=== PATIENT | male | born 1985 | race Caucasian/White ===

== ENCOUNTER 2019-04-15 14:45 | Outpatient (CLI) | payer BC ==
--- NOTE | 2019-04-15 17:57 | MRI ---
CERVICAL SPINE MRI WITHOUT CONTRAST: 04/15/19 COMPARISON: None. HISTORY: Neck pain radiating down the right shoulder. TECHNIQUE: Multiplanar and multisequence MRI imaging of the cervical spine obtained without contrast. FINDINGS: The sagittal STIR imaging demonstrates no focal area of osseous marrow edema. There is straightening of the normal cervical lordosis. The craniocervical junction, atlantoaxial interspace, and cervicotho racic junction appear intact. C2-3: No significant central canal or neural foraminal stenosis. C3-4: No significant central canal or neural foraminal stenosis. C4-5: No significant central canal or neural foraminal stenosis. C5-6: There is disc space narrowing with disc desiccation and mild disc bulge partially effacing the ventral thecal sac. There is no significant associated central canal stenosis. There is a questionabl e small foraminal disc protrusion on the right at C5-6 causing a mild degree of right neural foramina l stenosis, assessment limited secondary to motion. C6-7: No significant central canal or neural foraminal stenosis. C7-T1: No central canal or neural foraminal stenosis. There is no focal area of abnormal signal intensity identified within the cervical cord. IMPRESSION: Degenerative change at C5-6. Probable associated small disc protrusion in the right foraminal region with mild right neural foraminal stenosis. POS: TPC
== END 2019-04-15 14:46 | disposition home or self-care (01) ==
LOC: SCSMRI 14:45
PROVIDERS: ATTEND Orthopaedic Surgery
DX: M47.22 Other spondylosis with radiculopathy, cervical region (principal); M48.02 Spinal stenosis, cervical region
CPT/HCPCS: 72141

== ENCOUNTER 2019-08-20 10:25 | Outpatient (CLI) | payer OTHER ==
--- NOTE | 2019-08-20 11:33 | MRI ---
MRI RIGHT KNEE PERFORMED WITHOUT CONTRAST ENHANCEMENT: Date: 08/20/2019 HISTORY: Right knee pain after injury on 08/18/2019. FINDINGS: Anterior, as well as posterior cruciate ligaments are intact. The lateral meniscus has a normal shape and appearance. There is a flap-type tear involving the medial meniscus. This occurs along the posterior horn extendi ng to the posterior horn/body junction region. The medial, as well as lateral collateral ligaments are intact. The patellar articular cartilage is normal in appearance. Medial and lateral patellar retinaculum and quadriceps and patellar tendons are normal. IMPRESSION: Flap-type tear involving the posterior horn and posterior horn/body junction region of the medial men iscus. POS: TPC
== END 2019-08-20 10:26 | disposition home or self-care (01) ==
LOC: TBSIIMAG 10:25
PROVIDERS: ATTEND Family Medicine
DX: M23.91 Unspecified internal derangement of right knee (principal); S83.241A Other tear of medial meniscus, current injury, right knee, initial encounter

== ENCOUNTER 2019-11-05 06:16 | Outpatient (CLI) | payer OTHER ==
[2019-11-05 11:51] LABS: #Basophils 0.1 thou/uL (0.0-0.2); #Eosinphils 0.4 thou/uL (0.0-0.7); #Lymphocytes 1.8 thou/uL (1.20-3.40); #Monocytes 0.5 thou/uL (0.11-0.59); #Neutrophils 4.3 thou/uL (1.40-6.50); %Basophils 0.8 % (0.0-1.0); %Eosinophils 5.7 % (0.0-10.0); %Monocytes 7.4 % (0.0-10.0); %Neutrophils 61.1 % (42.0-75.0); Hemoglobin 15.3 g/dL (14.0-18.0); Mean Corpuscular Hemoglobin 30.1 pg (27.0-31.0); Mean Corpuscular Volume 91.2 fL (78.0-98.0); Mean Platelet Volume 8.6 fL (7.4-10.4); Platelet Count 296 thou/uL (130-400); RBC Distribution Width 11.2 % (11.5-14.5); Red Blood Cell (RBC) Count 5.06 mill/uL (4.70-6.10)
[2019-11-05 18:21] LABS: SARS-CoV-2 MS2 Positive; SARS-CoV-2 N Gene Negative; SARS-CoV-2 S Gene Negative; SARS-CoV-2 orf1ab Negative
== END 2019-11-05 06:17 | disposition home or self-care (01) ==
LOC: LABBT 06:16
PROVIDERS: ATTEND Orthopaedic Surgery
DX: Z01.812 Encounter for preprocedural laboratory examination (principal); Z11.59 Encounter for screening for other viral diseases; S83.241A Other tear of medial meniscus, current injury, right knee, initial encounter
CPT/HCPCS: 85025; 87635; U0003

== ENCOUNTER 2019-11-09 05:47 | Day surgery (SDC) | payer OTHER ==
[2019-11-05 10:22] VITALS: BMI 25.0
[2019-11-09] MEDS ORDERED: Fentanyl 100 MCG/2 ML VIAL ONE (06:21)
[2019-11-09] MEDS ORDERED: Midazolam HCl 2 mg/2 ml Vial ONE ×2 (06:21→07:14)
[2019-11-09] MEDS ORDERED: Lidocaine 1% (PF) 30 ML VIAL ONE (06:49)
[2019-11-09] MEDS ORDERED: Bupivacaine/Epinephrine 0.25% 30 ML VIAL ONE (06:49)
--- NOTE | 2019-11-09 07:39 | HP ---
PREOPERATIVE DIAGNOSIS: Right knee pain. HISTORY OF PRESENT ILLNESS: Mr. Rhodes is a 34-year-old male, who on July 17 sustained an injury to his knee. It got mechanical locking and catching. The patient has been treated. He does ranching and currently on light duty. He has failed conservative measures. PAST MEDICAL HISTORY: Seasonal allergies, asthma. MEDICATIONS: Include, 1. Tylenol. 2. Albuterol. ALLERGIES: NO KNOWN DRUG ALLERGIES. SOCIAL HISTORY: Nonsmoker. The patient uses smokeless tobacco. 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 Alcohol, daily. PHYSICAL EXAMINATION: GENERAL: Alert and oriented, in no acute distress, resting comfortably in bed. EXTREMITIES: Right lower extremity: No effusion or erythema. No medial joint line pain. Stable exam. Full range of motion. Positive Gilberto's. Negative straight leg raise. Neurovascularly intact. IMAGING STUDIES: MRI showed a flap tearmedial meniscus. IMPRESSION: Medial meniscus tear. ASSESSMENT AND PLAN: The patient will be taken to the operating room for arthroscopic debridement/partial menisectomy of the medial meniscus tear. He understands the risks and benefits to include arthritis, pain, decreased range of motion and strength, fracture, failure of procedure, damage to vital structures, potential blood clots, loss of life or limb. The patient understands the risks and benefits and elected to proceed. He will be taken back to the operative suite and we will proceed with the surgery. Job ID: [id number] MTDD
[2019-11-09] MEDS ORDERED: PROPOFOL 200 MG/20 ML VIAL ONE (10:52)
[2019-11-09] MEDS ORDERED: Lidocaine 1% PF 5 ML VIAL ONE (10:52)
[2019-11-09] MEDS ORDERED: Dexamethasone 20 MG/5 ML VIAL ONE (10:52)
[2019-11-09] MEDS ORDERED: Ondansetron PF 4 MG/2 ML Vial ONE (10:52)
--- NOTE | 2019-11-09 10:53 | OP ---
DATE OF PROCEDURE: 11/09/2019 PREOPERATIVE DIAGNOSIS: Right medial meniscus tear, posterior horn flap. POSTOPERATIVE DIAGNOSES: 1. Medial meniscus tear, posterior horn flap. 2. Partial tearing of the root. 3. Grade 1 medial femoral condyle degenerative changes. PROCEDURE: 1. Medial, partial meniscectomy CLINICAL ENGINEERING DIRECTOR: None. ANESTHESIA: Dr. Dill. The patient received LMA with 25 mL of Marcaine intra-articular preprocedure with Marcaine 0.25% with epi and 25 mL lidocaine plain postprocedure. ESTIMATED BLOOD LOSS: Less than 30 mL. TOURNIQUET TIME: 16 minutes. ANTIBIOTICS: Ancef. COMPLICATIONS: None. HISTORY OF PRESENT ILLNESS: Mr. Rhodes is a 34-year-old male, who presents with right knee pain after an injury at work, he has had medial meniscus tear. I discussed with him the risks and benefits of partial meniscectomy to include pain, scar, bleeding, infection, damage to vital structures, decreased range of motion and strength, continued pain despite surgical intervention, loss of life or limb. The patient and family understood the risks and benefits of procedure and elected to proceed. DESCRIPTION OF PROCEDURE: Time-out was performed designating the patient's right lower extremity as the operative site based on site, consents, and marking. After time-out, the patient's right lower extremity was prepped and draped in sterile fashion. Tourniquet was brought up and left up for a total of 16 minutes. Incision was made after I had injected the patient with Marcaine 0.25% with epi preprocedure for lateral portal and visualized placement for my medial portal under visual with a spinal needle. Made a stab incision, excised the fat pad, looked in the suprapatellar pouch, no defects. No significant changes of patella or trochlea noted. Medial and lateral gutters, looked in the lateral compartment, saw no tearing. ACL and PCL were intact. Looked in the meniscus, I saw the flap tear that was noted in the posterior horn of medial meniscus. It was kind of flipped underneath the meniscus. I debrided that back and probed the meniscus. There was a little small area of the root that looked slightly like a partial tear. I could not extrude the root in it and it looked like potentially medial meniscus root tear , I could not see the other edge. I debrided that just a little small partial tear back. I could not extrude the meniscus, had good stability. Did not see any other tears throughout its course. I washed and went back and looked in the pouch for any loose bodies and I debrided them, and in the notch, ensured no loose bodies were found. I took my final pictures, washed, and closed with 3-0 nylon after injecting lidocaine plain. The patient will be weightbearing as tolerated. I will see him back in clinic in 2 weeks. Job ID: [id number] [facility]
== END 2019-11-09 10:50 | disposition home or self-care (01) ==
LOC: SDC 05:47
PROVIDERS: ATTEND Orthopaedic Surgery
PROC: 0SBC4ZZ Excision of Right Knee Joint, Percutaneous Endoscopic Approach (ICD-10-PCS; principal; 2019-11-09)
DX: S83.241A Other tear of medial meniscus, current injury, right knee, initial encounter (principal); F17.290 Nicotine dependence, other tobacco product, uncomplicated; J45.909 Unspecified asthma, uncomplicated; Z79.899 Other long term (current) drug therapy; X58.XXXA Exposure to other specified factors, initial encounter
CPT/HCPCS: J0690; J1100; J2001; J2250; J2405; J2704; J3010

== ENCOUNTER 2020-02-18 07:36 | Outpatient (CLI) | payer BC, OTHER ==
[2020-02-18 11:47] LABS: #Basophils 0.1 thou/uL (0.0-0.2); #Eosinphils 0.6 thou/uL (0.0-0.7); #Monocytes 0.5 thou/uL (0.11-0.59); #Neutrophils 4.2 thou/uL (1.40-6.50); %Basophils 1.1 % (0.0-1.0); %Eosinophils 7.7 % (0.0-10.0); %Monocytes 6.5 % (0.0-10.0); %Neutrophils 57.7 % (42.0-75.0); Hemoglobin 15.7 g/dL (14.0-18.0); Mean Corpuscular HGB CONC 33.7 g/dL (32.0-36.0); Mean Corpuscular Hemoglobin 30.5 pg (27.0-31.0); Mean Corpuscular Volume 90.7 fL (78.0-98.0); Mean Platelet Volume 8.8 fL (7.4-10.4); Platelet Count 302 thou/uL (130-400); RBC Distribution Width 11.5 % (11.5-14.5); Red Blood Cell (RBC) Count 5.14 mill/uL (4.70-6.10); White Blood Cell (WBC) Count 7.3 thou/uL (4.8-10.8)
[2020-02-18 17:04] LABS: SARS-CoV-2 MS2 Positive; SARS-CoV-2 N Gene Negative; SARS-CoV-2 S Gene Negative; SARS-CoV-2 by NAA Not Detected (NotDetected); SARS-CoV-2 orf1ab Negative
== END 2020-02-18 07:37 | disposition home or self-care (01) ==
LOC: LABBT 07:36
PROVIDERS: ATTEND Orthopaedic Surgery
DX: Z01.812 Encounter for preprocedural laboratory examination (principal); Z20.828 Contact with and (suspected) exposure to other viral communicable diseases; S83.212A Bucket-handle tear of medial meniscus, current injury, left knee, initial encounter; M23.92 Unspecified internal derangement of left knee
CPT/HCPCS: 85025; 87635; U0003

== ENCOUNTER 2020-03-06 01:20 | Emergency (ER) | payer BC ==
[2020-03-06] MEDS ORDERED: Morphine 4 MG/ML VIAL ONE (01:56)
[2020-03-06] MEDS ORDERED: Ketorolac Tromethamine 30 MG/ML VIAL ONE (01:56)
[2020-03-06] MEDS ORDERED: Ondansetron PF 4 MG/2 ML Vial ONE (01:56)
[2020-03-06 02:12] LABS: #Basophils 0.1 thou/uL (0.0-0.2); #Eosinphils 0.5 thou/uL (0.0-0.7); #Lymphocytes 2.5 thou/uL (1.20-3.40); #Monocytes 0.8 thou/uL (0.11-0.59); #Neutrophils 9.9 thou/uL (1.40-6.50); %Basophils 0.6 % (0.0-1.0); %Eosinophils 3.5 % (0.0-10.0); %Lymphocytes 17.8 % (21.0-51.0); %Monocytes 6.1 % (0.0-10.0); %Neutrophils 71.9 % (42.0-75.0); Hemoglobin 15.1 g/dL (14.0-18.0); Mean Corpuscular HGB CONC 34.2 g/dL (32.0-36.0); Mean Corpuscular Hemoglobin 30.8 pg (27.0-31.0); Mean Corpuscular Volume 90.1 fL (78.0-98.0); Mean Platelet Volume 8.2 fL (7.4-10.4); Platelet Count 333 thou/uL (130-400); Red Blood Cell (RBC) Count 4.91 mill/uL (4.70-6.10); White Blood Cell (WBC) Count 13.8 thou/uL (4.8-10.8)
[2020-03-06 04:08] LABS: ALT (SGPT) 93 U/L (8-55); AST (SGOT) 38 U/L (5-34); Albumin 4.5 g/dL (3.5-5.0); Alkaline Phosphatase 52 U/L (40-110); Anion Gap 19 mmol/L (10-20); BUN (Urea Nitrogen) 17 mg/dL (8.9-20.6); Bilirubin, Total 0.9 mg/dL (0.2-1.2); Calc. Creatinine Clearance 0 mL/min (70-130); Calcium 9.8 mg/dL (7.8-10.44); Carbon Dioxide 20 mmol/L (22-29); Chloride 103 mmol/L (98-107); Estimated GFR-MDRD 42; Globulin 2.9 g/dL (2.4-3.5); Glucose 135 mg/dL (70-105); Potassium 3.8 mmol/L (3.5-5.1); Protein, Total 7.4 g/dL (6.0-8.3); Sodium 138 mmol/L (136-145)
[2020-03-06 05:11] LABS: Bilirubin Negative (Negative); Blood, Urine 3+ (Negative); Clarity Clear (Clear); Glucose, Urine (Dipstick) Normal (Negative); Ketone, Urine Negative (Negative); Leukocyte Negative Leu/uL (Negative); Mucous/LPF 1+ LPF (<2+); Nitrite Negative (Negative); Protein, Urine (Dipstick) Negative (Neg-Trace); RBC/HPF 21-50 HPF (0-3); Specific Gravity, Urine 1.013 (1.002-1.036); Squamous Epithelial None Seen HPF (0-3); Urobilinogen Normal mg/dL (Less than 2); WBC/HPF 0-3 HPF (0-3); pH, Urine 5.5 (5.0-9.0)
[2020-03-06 05:15] LABS: Bacteria/HPF 1+ HPF (None Seen)
--- NOTE | 2020-03-06 09:01 | CT ---
PRELIMINARY REPORT/[facility]/EMERGENCY AFTER HOURS PROCEDURE: CT abdomen and pelvis without contrast: Comparison: None Findings: No significant abnormality in the lung bases. Normal gallbladder. No biliary ductal dilatat ion. Severe atrophy or aplasia of the right idney. Moderate left-sided hydronephrosis and hydroureter. Irregular calcification in the left distal ureter could be one irregular calculus or 2 adjacent calcifications measuring 5 mm x 5 mm. Smaller calculus in the left distal ureter proximal to this level measures 3 mm. Left perinephric fat stranding and e nlargement of the left kidney. The solid organs are otherwise unremarkable within the limits of a non contrast study. No bowel obstruction, free fluid, free air, abscess or diverticulitis. Normal appendi x. Normal size urinary bladder. Right inguinal hernia contains only fat. Impression: Moderate left-sided hydronephrosis. Irregular calculus or 2 adjacent calculi causing obst ruction in the left distal ureter. ELECTRONICALLY SIGNED BY: Shon Zhou MD Mar 06, 2020 2:29:26 AM CDT FINAL REPORT CT ABDOMEN AND PELVIS WITHOUT CONTRAST: I agree with the preliminary report given by Dr. Shon Zhou of [facility]. POS: OFF
== END 2020-03-06 05:22 | disposition home or self-care (01) ==
LOC: ERS 01:20
DX: N13.2 Hydronephrosis with renal and ureteral calculous obstruction (principal); F17.220 Nicotine dependence, chewing tobacco, uncomplicated
CPT/HCPCS: 74176; 80053; 81003; 81015; 83690; 85025; 96361; 96374; 96375; J1885; J2270; J2405

== ENCOUNTER 2020-03-17 05:42 | Outpatient (CLI) | payer BC, OTHER ==
[2020-03-17 14:00] LABS: #Basophils 0.1 thou/uL (0.0-0.2); #Eosinphils 0.6 thou/uL (0.0-0.7); #Monocytes 0.5 thou/uL (0.11-0.59); #Neutrophils 6.8 thou/uL (1.40-6.50); %Basophils 0.5 % (0.0-1.0); %Eosinophils 5.7 % (0.0-10.0); %Lymphocytes 20.4 % (21.0-51.0); %Monocytes 5.2 % (0.0-10.0); %Neutrophils 68.2 % (42.0-75.0); Hemoglobin 15.9 g/dL (14.0-18.0); Mean Corpuscular HGB CONC 33.9 g/dL (32.0-36.0); Mean Corpuscular Hemoglobin 31.1 pg (27.0-31.0); Mean Corpuscular Volume 91.8 fL (78.0-98.0); Mean Platelet Volume 8.6 fL (7.4-10.4); Platelet Count 371 thou/uL (130-400); RBC Distribution Width 11.1 % (11.5-14.5); Red Blood Cell (RBC) Count 5.12 mill/uL (4.70-6.10)
[2020-03-17 14:09] LABS: PTT 29.1 sec (22.9-36.1); Prothrombin Time 12.8 sec (12.0-14.7)
[2020-03-17 14:29] LABS: Anion Gap 17 mmol/L (10-20); BUN (Urea Nitrogen) 15 mg/dL (8.9-20.6); Calc. Creatinine Clearance 0 mL/min (70-130); Calcium 9.8 mg/dL (7.8-10.44); Carbon Dioxide 21 mmol/L (22-29); Chloride 103 mmol/L (98-107); Estimated GFR-MDRD 75; Glucose 119 mg/dL (70-105); Potassium 4.5 mmol/L (3.5-5.1); Sodium 136 mmol/L (136-145)
[2020-03-18 14:48] LABS: SARS-CoV-2 MS2 Positive; SARS-CoV-2 N Gene Negative; SARS-CoV-2 S Gene Negative; SARS-CoV-2 by NAA Not Detected (NotDetected); SARS-CoV-2 orf1ab Negative
== END 2020-03-17 05:43 | disposition home or self-care (01) ==
LOC: LABBT 05:42
PROVIDERS: ATTEND Urology
DX: Z01.812 Encounter for preprocedural laboratory examination (principal); Z20.828 Contact with and (suspected) exposure to other viral communicable diseases; Z98.890 Other specified postprocedural states; F17.200 Nicotine dependence, unspecified, uncomplicated
CPT/HCPCS: 80048; 85025; 85610; 85730; 87635; U0003

== ENCOUNTER 2020-03-22 06:46 | Day surgery (SDC) | payer BC ==
[2020-03-20 13:48] VITALS: BMI 25.4
[2020-03-22] MEDS ORDERED: cefTRIAXone\\ROCEPHIN 2 GM VIAL ONE (08:17)
[2020-03-22] MEDS ORDERED: Sodium Chloride 0.9% 100 ML ONE (08:18)
[2020-03-22] MEDS ORDERED: Lidocaine 2% Jelly 5 ML TUBE ONE (08:52)
[2020-03-22] MEDS ORDERED: Fentanyl 100 MCG/2 ML VIAL ONE ×2 (08:52→10:36)
[2020-03-22] MEDS ORDERED: Midazolam HCl 2 mg/2 ml Vial ONE (08:58)
[2020-03-22] MEDS ORDERED: Iothalamate Meglumine 60% 50 ML VIAL FS ONE (09:10)
--- NOTE | 2020-03-22 10:06 | RAD ---
Retrograde pyelogram: 03/22/2020 COMPARISON: 03/11/2020 HISTORY: Left stent FINDINGS: A single radiograph performed during retrograde pyelogram demonstrates a double-J ureteral stent on the left. IMPRESSION: Left double-J ureteral stent.
[2020-03-22] MEDS ORDERED: Phenazopyridine HCl 97.5 MG TABLET ONE (10:38)
[2020-03-22] MEDS ORDERED: Oxybutynin 5 MG TAB ONE (10:38)
--- NOTE | 2020-03-22 10:49 | RAD ---
ABDOMEN 1 VIEW: HISTORY: Preprocedure evaluation. COMPARISON: IVP 03/11/[address] stone protocol 03/11/2020. FINDINGS: There continues to be an ovoid calcification along the left ureterovesicular junction. Indwelling le ft-sided ureteral stent is in place. No abnormal right-sided renal calculi are appreciated. IMPRESSION: Similar location of the left ureterovesicular junction calculi with indwelling left-sided ureteral st ent. POS: HOME
--- NOTE | 2020-03-22 10:52 | OP ---
DATE OF PROCEDURE: 03/22/2020 PREOPERATIVE DIAGNOSES: 1. A 34-year-old male with history of left 1 cm UVJ stone with severe hydronephrosis, second nidus just proximal to this 3 mm. 2. Right atrophic hypoplastic kidney. POSTOPERATIVE DIAGNOSES: 1. A 34-year-old male with history of left 1 cm UVJ stone with severe hydronephrosis, second nidus just proximal to this 3 mm. 2. Right atrophic hypoplastic kidney. PROCEDURES PERFORMED: Cystoscopy, bilateral retrograde pyelogram, left 6 x 30 double-J ureteral stent exchange with distal tail in situ, ureteroscopy, laser lithotripsy of large left UVJ stone, basket extraction of stone debris, retrograde laser lithotripsy. ANESTHESIA: General. COMPLICATIONS: None apparent. DISPOSITION: To recovery room in stable condition. SPECIMEN: Stone for chemical analysis. Intraoperative findings: Right retrograde demonstrating a atretic right ureter, blind-ending consistent with hypoplastic right kidney. Left ureteral calculi impacted adherent Essentially solitary left kidney INDICATIONS FOR PROCEDURE AND HISTORY: Mr. Rhodes is a pleasant 34-year-old male with no significant past medical history, presented to the emergency room x2 due to large left 1 cm UVJ stone. He underwent ureteral stent placement, as he had an impacted left UVJ stone with acute renal insufficiency. CT demonstrated right atrophic nubbin of the kidney, hypoplastic that he was never aware of. He presents today for the above procedure. Risks and complications of the procedure were reviewed including, but not limited to, bleeding, pain, infection, injury to adjacent organs, urosepsis, stricture formation. All questions answered to his satisfaction and he desired to proceed. DESCRIPTION OF PROCEDURE: After an informed consent was signed, the patient was taken to the operating room, placed in a dorsal lithotomy position with the genital area prepped and draped in the usual surgical sterile fashion. A 21-Sinhala cystoscope was utilized for cystoscopy, which demonstrated normal anterior posterior urethra. The bladder was entered, which demonstrated bilateral UOs in normal orthotopic position. Left ureteral stent was visualized, with some bullous edema around the UO as expected. The right UO was intubated and a retrograde pyelogram was performed. It was somewhat difficult to opacify, but the right ureter is atretic, which appeared to be a blind ending in the proximal ureter near the L4. This was consistent with hypoplastic right kidney. At this time, we moved the left ureteral stent to the level of the meatus and a 0.035 Sensor wire was placed into the left upper pole. A rigid ureteroscope was then passed. The stone was somewhat difficult to visualize, as there was significant bullous edema, and it appeared to be impacted in the intramural ureter. The wire that we placed through the stent demonstrated that it was submucosal, due to the impacted nature of the stone with a normal course proximal to the stone. Using a 365 micron laser fiber with ball- tip at 1.0 joules, we gently laser lithotripsy'd the stone off the mucosa as there was significant bullous edema and the stone was adherent. We gently teased away the stone off the mucosa and laser lithotripsy'd the stone rendering it free. The stone fragments were successfully extracted after successful laser lithotripsy. Some of the stone nidus was sent for chemical analysis. We surveyed the ureter, which demonstrated no further stone in the proximal ureter of concern. With the stone render free, we placed a new wire to avoid submucosal placement in the intramural portion. A new wire was placed into the left upper pole and the previously existing wire removed. The surveillance of the intramural ureter does demonstrate what appeared to be an impacted high-grade obstruction of the intramural ureter. A 6 x 30 double-J ureteral stent was passed without difficulty and distal tail was left in situ. Bladder was completely emptied and he tolerated the procedure well. He was discharged with refill on his tramadol #30, 50 mg one p.o. q.6 hours p.r.n.; Flomax for 14 days, oxybutynin 10 mg XL for 14 days, ciprofloxacin for course of 7 days. As he has a solitary kidney with a mucosal adherence and significant bullous edema, I will leave the stent in for 2 weeks. He will return to clinic on April 06 at 8:15 a.m. for cysto and stent pull under local. Plan Rocephin 1 g IM x1 prior to cysto stent pull. Job ID: [id number] MTDD
[2020-03-22] MEDS ORDERED: Dexamethasone 20 MG/5 ML VIAL ONE (14:51)
[2020-03-22] MEDS ORDERED: PROPOFOL 200 MG/20 ML VIAL ONE (14:51)
[2020-03-22] MEDS ORDERED: Ondansetron PF 4 MG/2 ML Vial ONE (14:51)
[2020-03-22] MEDS ORDERED: Lidocaine 1% PF 5 ML VIAL ONE (14:51)
[2020-03-22] MEDS ORDERED: Rocuronium Bromide 10 MG/ML (10ML VIAL) ONE (14:51)
[2020-03-22] MEDS ORDERED: Glycopyrrolate 0.2 MG/ML 5 ML SYRINGE ONE (14:51)
[2020-03-22] MEDS ORDERED: Ketorolac Tromethamine 30 MG/ML VIAL ONE (14:51)
== END 2020-03-22 13:12 | disposition home or self-care (01) ==
LOC: SDC 06:46
PROVIDERS: ATTEND Urology
PROC: 0T768DZ Dilation of Right Ureter with Intraluminal Device, Via Natural or Artificial Opening Endoscopic (ICD-10-PCS; principal; 2020-03-22)
PROC: 0TC68ZZ Extirpation of Matter from Right Ureter, Via Natural or Artificial Opening Endoscopic (ICD-10-PCS; principal; 2020-03-22)
DX: N13.2 Hydronephrosis with renal and ureteral calculous obstruction (principal); Q60.3 Renal hypoplasia, unilateral; R35.0 Frequency of micturition; J45.909 Unspecified asthma, uncomplicated; Z79.899 Other long term (current) drug therapy
CPT/HCPCS: 74018; 74420; 82365; 88300; J0696; J1100; J1885; J2250; J2405; J2704; J3010; J3490

== ENCOUNTER 2020-05-15 15:19 | Outpatient (CLI) | payer BC ==
--- NOTE | 2020-05-15 16:21 | CT ---
CT ABDOMEN AND PELVIS WITHOUT CONTRAST: Date: 05-15-2020 PROVIDED CLINICAL HISTORY: Hydronephrosis FINDINGS: Comparison is made with the CT examination dated 03-11-2020. The visualized lung bases are free of significant opacity. The liver, spleen, pancreas, and adrenal glands demonstrate an unremarkable CT appearance. Atrophic right kidney is redemonstrated. Previously described left UVJ calculus and distal ureteral calculi are no longer evident. No urinary tract calculi are evident. There is no hydronephrosis or hydroureter. There is no bowel dilatation, inflammatory fat stranding, free fluid or lymph node enlargement appare nt. Small fat containing right inguinal hernia. The osseous structures demonstrate no concerning lytic or blastic lesions. IMPRESSION: No evidence for urinary tract calculi or hydronephrosis. POS: AH
== END 2020-05-15 15:20 | disposition home or self-care (01) ==
LOC: BICCT 15:19
PROVIDERS: ATTEND Urology
DX: N13.39 Other hydronephrosis (principal); N26.1 Atrophy of kidney (terminal)
CPT/HCPCS: 74176

== ENCOUNTER 2020-08-15 10:28 | Emergency (ER) | payer BC ==
--- NOTE | 2020-08-15 11:00 | CT ---
CT Stone Protocol: 08/15/2020 10:40 AM HISTORY: Left flank pain COMPARISON: 05/15/2020 TECHNIQUE: Multiple contiguous axial images were obtained and a CT of the abdomen and pelvis without IV contrast . Coronal and sagittal reformats were performed. FINDINGS: This examination is limited for the evaluation of solid organs and vascular structures due to the lac k of intravenous contrast. Lower Chest: within normal limits. Abdomen: Liver: within normal limits. Bile Ducts: Normal caliber. Gallbladder: No calcified gallstones. Normal caliber wall. Pancreas: within normal limits. Spleen: within normal limits. Adrenals: within normal limits. Kidneys: Atrophic right kidney. Pelvis: Reproductive Organs: No pelvic masses. Ureters: within normal limits. Bladder: within normal limits. Bowel: Normal caliber. Normal appendix. Mesenteric Lymph Nodes: No enlarged mesenteric lymph nodes. Peritoneum: No ascites or free air, no fluid collection. Vessels: Normal caliber aorta Retroperitoneum: within normal limits. Abdominal Wall: within normal limits. Bones: Unremarkable. IMPRESSION: No evidence of acute intraabdominal or pelvic abnormality.
[2020-08-15 11:44] LABS: #Eosinphils 0.1 thou/uL (0.0-0.7); #Monocytes 0.6 thou/uL (0.11-0.59); #Neutrophils 7.3 thou/uL (1.40-6.50); %Basophils 0.1 % (0.0-1.0); %Eosinophils 1.2 % (0.0-10.0); %Lymphocytes 11.1 % (21.0-51.0); %Monocytes 6.2 % (0.0-10.0); %Neutrophils 81.4 % (42.0-75.0); Hemoglobin 17.6 g/dL (14.0-18.0); Mean Corpuscular HGB CONC 34.6 g/dL (32.0-36.0); Mean Corpuscular Hemoglobin 31.4 pg (27.0-31.0); Mean Corpuscular Volume 90.7 fL (78.0-98.0); Platelet Count 233 thou/uL (130-400); RBC Distribution Width 11.3 % (11.5-14.5); Red Blood Cell (RBC) Count 5.62 mill/uL (4.70-6.10); White Blood Cell (WBC) Count 8.9 thou/uL (4.8-10.8)
[2020-08-15 12:06] LABS: ALT (SGPT) 80 U/L (8-55); AST (SGOT) 35 U/L (5-34); Albumin 4.7 g/dL (3.5-5.0); Alkaline Phosphatase 56 U/L (40-110); Anion Gap 15 mmol/L (10-20); BUN (Urea Nitrogen) 18 mg/dL (8.9-20.6); Bilirubin, Total 1.4 mg/dL (0.2-1.2); Calc. Creatinine Clearance 0 mL/min (70-130); Calcium 9.5 mg/dL (7.8-10.44); Carbon Dioxide 25 mmol/L (22-29); Chloride 102 mmol/L (98-107); Globulin 3.4 g/dL (2.4-3.5); Glucose 124 mg/dL (70-105); Protein, Total 8.1 g/dL (6.0-8.3); Sodium 138 mmol/L (136-145)
== END 2020-08-15 14:00 | disposition home or self-care (01) ==
LOC: ERS 10:28
DX: N28.9 Disorder of kidney and ureter, unspecified (principal); E86.0 Dehydration; F17.220 Nicotine dependence, chewing tobacco, uncomplicated
CPT/HCPCS: 36415; 74176; 80053; 85025

== ENCOUNTER 2021-03-14 15:05 | Outpatient (CLI) | payer BC | END 2021-03-14 15:06 | disposition home or self-care (01) | LOC: BICULT 15:05 | PROVIDERS: ATTEND Urology | DX: N26.1 Atrophy of kidney (terminal) (principal) | CPT/HCPCS: 76770 ==